=== PATIENT | female | born 1970 | race Caucasian/White ===

== ENCOUNTER 2017-01-14 07:18 | Inpatient (IN) | payer OTHER ==
[2017-01-14] MEDS ORDERED: DIAZEPAM 5 MG TAB PO STA (07:35)
[2017-01-14] MEDS ORDERED: HYDROcodone/APAP 5-325MG 1 EACH TAB PO STA (07:35)
[2017-01-14] MEDS ORDERED: KETOROLAC 60 MG/2 ML VIAL IM STA (07:35)
[2017-01-14 08:11] LABS: Appearance,Urine Cloudy (Clear); Bacteria,Urine Many /hpf; Bilirubin,Urine 1+ (Negative); Glucose,Urine (UA) Negative (Negative); Ketones,Urine 2+ (Negative); Leukocyte Esterase,Urine Moderate (Negative); Mucus,Urine Moderate /hpf; Nitrite,Urine Positive (Negative); Particle Count 17201; Protein,Urine 2+ (Negative); RBC,Urine 5 /hpf (0-5); Specific Gravity,Urine 1.025 (1.001-1.035); Squamous Epithelial Cell,Urine 5 /hpf (0-4); UA Billing (MACRO vs. MICRO) MICRO; Urobilinogen,Urine >12.0 mg/dL (<2.0); WBC,Urine 22 /hpf (0-5)
[2017-01-14] MEDS ORDERED: NITROFURANTOIN MONOHYD/M-CRYST 100 MG CAP PO STA (08:41)
--- NOTE | 2017-01-14 08:41 | US ---
EXAMINATION TYPE: US transvaginal DATE OF EXAM: 01/14/2017 COMPARISON: NONE CLINICAL HISTORY: Pain. Pt states bilateral pelvic pain especially during intercourse TECHNIQUE: Transvaginal (TV) Date of LMP: 01/13/2017 EXAM MEASUREMENTS: Uterus: 9.9 x 5.3 x 5.3 cm Endometrial Stripe: 0.9 cm Right Ovary: Normal ovarian tissue not visualized Left Ovary: Unable to visualize 1. Uterus: Anteverted Heterogeneous 2. Endometrium: wnl 3. Right Ovary: Hemorrhagic cyst vs. debris-filled fallopian tube= 6.5 x 4.5 x 3.9 cm 4. Left Ovary: Unable to visualize Spectral, color and waveform doppler imaging shows good arterial and venous flow within the right o vary; there is no evidence for ovarian torsion. 5. Bilateral Adnexa: Bilateral adnexa show enlarged, tubular structures filled with debris, probable fallopian tubes 6. Posterior cul-de-sac: wnl Clinical correlation is recommended with beta-hCG to evaluate for ectopic . IMPRESSION: 1. Large complex cyst bilateral ovaries. Correlate for hemorrhagic cyst. 2. Right fallopian tube appears dilated and debris-filled. Correlate for pyosalpinx.
--- NOTE | 2017-01-14 08:41 | ED ---
General Adult HPI - General Chief complaint: Abdominal Pain Stated complaint: lower back cramps into legs Time Seen by Provider: 01/14/17 07:26 Source: patient, RN notes reviewed, old records reviewed Mode of arrival: ambulatory Limitations: no limitations - History of Present Illness Initial comments: This is a 46-year-old female to the ER for evaluation of cramping, abdominal and upper thigh leg cramping. No dysuria no difficulties with bowel movement. No fevers. No adrenal travel history. Patient states she has history of ovarian cyst and this feels similar. She denies any recent change in medications. She states she did have a recent period which was normal. No vaginal discharge. No other issues of abdominal pain. She states her cramping feels like prior menses - Related Data Previous Rx's Medication Instructions Recorded Naproxen [Naprosyn] 500 mg PO Q12HR #30 tab 01/14/17 Nitrofurantoin Monohyd/M-Cryst 100 mg PO Q12HR #10 cap 01/14/17 [Macrobid] Allergies Allergy/AdvReac Type Severity Reaction Status Date / Time No Known Allergies Allergy Verified 01/14/17 07:23 Review of Systems ROS Statement: Those systems with pertinent positive or pertinent negative responses have been documented in the HPI. ROS Other: All systems not noted in ROS Statement are negative. Past Medical History Past Medical History: No Reported History History of Any Multi-Drug Resistant Organisms: None Reported Past Surgical History: No Surgical Hx Reported Past Psychological History: No Psychological Hx Reported Smoking Status: Former smoker Past Alcohol Use History: Rare Past Drug Use History: None Reported General Exam Limitations: no limitations General appearance: alert, in no apparent distress Head exam: Present: atraumatic, normocephalic, normal inspection Eye exam: Present: normal appearance, PERRL, EOMI. Absent: scleral icterus, conjunctival injection, periorbital swelling ENT exam: Present: normal exam, mucous membranes moist Neck exam: Present: normal inspection. Absent: tenderness, meningismus, lymphadenopathy Respiratory exam: Present: normal lung sounds bilaterally. Absent: respiratory distress, wheezes, rales, rhonchi, stridor Cardiovascular Exam: Present: regular rate, normal rhythm, normal heart sounds. Absent: systolic murmur, diastolic murmur, rubs, gallop, clicks GI/Abdominal exam: Present: soft, normal bowel sounds. Absent: distended, tenderness, guarding, rebound, rigid Extremities exam: Present: normal inspection, full ROM, normal capillary refill. Absent: tenderness, pedal edema, joint swelling, calf tenderness Back exam: Present: normal inspection Neurological exam: Present: alert, oriented X3, CN II-XII intact Psychiatric exam: Present: normal affect, normal mood Skin exam: Present: warm, dry, intact, normal color. Absent: rash Course Vital Signs 01/14/17 07:20 Temperature 99.1 F Pulse Rate 109 H Respiratory 20 Rate Blood Pressure 111/67 O2 Sat by Pulse 100 Oximetry - Reevaluation(s) Reevaluation #1: 01/14/17 08:40 The patient's symptoms are improved at this time Medical Decision Making - Medical Decision Making 46 3 times a day F reevaluation of bowel cramping leg cramping. Patient's symptoms are improved ultrasound pelvis negative. Urine is positive for urinary tract infection Patient can be discharged home - Lab Data Lab Results 01/14/17 01/14/17 Range/Units 07:57 07:57 Urine Color Light Brown Urine Appearance Cloudy H (Clear) Urine pH 6.0 (5.0-8.0) Ur Specific [place] 1.025 (1.001-1.035) Urine Protein 2+ H (Negative) Urine Glucose (UA) Negative (Negative) Urine Blood Moderate H (Negative) Urine Nitrite Positive H (Negative) Urine Bilirubin 1+ H (Negative) Urine Urobilinogen >12.0 (<2.0) mg/dL Ur Leukocyte Esterase Moderate H (Negative) Urine RBC 5 (0-5) /hpf Urine WBC 22 H (0-5) /hpf Ur Squamous Epith Cells 5 H (0-4) /hpf Urine Bacteria Many H (None) /hpf Urine Mucus Moderate H (None) /hpf Urine HCG, Qual Not Detected (Not Detectd) - Radiology Data Radiology results: report reviewed (Ultrasound negative for acute disease), image reviewed Disposition Clinical Impression: Ovarian cyst, Pelvic pain, UTI (urinary tract infection) Disposition: HOME SELF-CARE Condition: Good Instructions: Pelvic Pain (ED), Urinary Tract Infection in Women (ED) Prescriptions: Naproxen [Naprosyn] 500 mg PO Q12HR #30 tab Nitrofurantoin Monohyd/M-Cryst [Macrobid] 100 mg PO Q12HR #10 cap Referrals: Windsor,Temo G, MD [Primary Care Provider] - 1-2 days
[2017-01-14] MEDS ORDERED: DOXYCYCLINE 100 MG in SODIUM CHLORIDE 0.9% 100 ML IVPB ONE (08:58)
[2017-01-14] MEDS ORDERED: SODIUM CHLORIDE 0.9% 1,000 ML IV STA ×2 (08:58)
[2017-01-14] MEDS ORDERED: MORPHINE SULFATE 4 MG/ML SYRINGE IV STA (08:58)
[2017-01-14] MEDS ORDERED: SODIUM CHLORIDE 0.9% 500 ML IV STA (08:58)
[2017-01-14] MEDS ORDERED: AMPICILLIN-SULBACTAM 3 GM in SODIUM CHLORIDE 0.9% 100 ML IVPB STA (08:58)
--- NOTE | 2017-01-14 09:03 | ED ---
Medical Decision Making - Medical Decision Making [address] for evaluation of developing severe suprapubic about pain with abdominal tenderness. Patient does have what seems to be positive tubo-ovarian abscess on ultrasound, patient will be admitted for IV antibiotics, blood cultures and pain control. - Lab Data Lab Results 01/14/17 01/14/17 Range/Units 07:57 07:57 Urine Color Light Brown Urine Appearance Cloudy H (Clear) Urine pH 6.0 (5.0-8.0) Ur Specific [place] 1.025 (1.001-1.035) Urine Protein 2+ H (Negative) Urine Glucose (UA) Negative (Negative) Urine Ketones 2+ H (Negative) Urine Blood Moderate H (Negative) Urine Nitrite Positive H (Negative) Urine Bilirubin 1+ H (Negative) Urine Urobilinogen >12.0 (<2.0) mg/dL Ur Leukocyte Esterase Moderate H (Negative) Urine RBC 5 (0-5) /hpf Urine WBC 22 H (0-5) /hpf Ur Squamous Epith Cells 5 H (0-4) /hpf Urine Bacteria Many H (None) /hpf Urine Mucus Moderate H (None) /hpf Urine HCG, Qual Not Detected (Not Detectd) Disposition Clinical Impression: Ovarian cyst, Pelvic pain, UTI (urinary tract infection), TOA (tubo-ovarian abscess) Disposition: ADMITTED IP TO THIS HOSP Condition: Fair Instructions: Urinary Tract Infection in Women (ED), Pelvic Pain (ED) Prescriptions: Naproxen [Naprosyn] 500 mg PO Q12HR #30 tab Nitrofurantoin Monohyd/M-Cryst [Macrobid] 100 mg PO Q12HR #10 cap Referrals: Temo Landis MD [Primary Care Provider] - 1-2 days
[2017-01-14 10:12] LABS: Basophils # (A) 0.1 k/uL (0-0.2); Basophils % (A) 0 %; CH 31.3; CHCM 34.3; Eosinophils # (A) 0.1 k/uL (0-0.7); Eosinophils % (A) 0 %; HCT 39.9 % (34.0-46.0); HDW 2.18; HGB 13.3 gm/dL (11.4-16.0); Luc # (Auto) 0.25; Luc % (Auto) 1; Lymphocytes # (A) 0.8 k/uL (1.0-4.8); Lymphocytes % (A) 4 %; MCH 30.5 pg (25.0-35.0); MCHC 33.3 g/dL (31.0-37.0); MCV 91.6 fL (80.0-100.0); Mean Platelet Volume 7.4; Monocytes # (A) 0.6 k/uL (0-1.0); Monocytes % (A) 3 %; Neutrophils # (A) 18.1 k/uL (1.3-7.7); Neutrophils % (A) 92 %; RBC 4.35 m/uL (3.80-5.40); RDW 14.5 % (11.5-15.5); WBC 19.8 k/uL (3.8-10.6); WBC (Perox) 19.13
[2017-01-14 10:22] LABS: ALT 24 U/L (9-52); AST 18 U/L (14-36); Alkaline Phosphatase 124 U/L (38-126); Anion Gap 12 mmol/L; Blood Urea Nitrogen 16 mg/dL (7-17); Calcium 9.4 mg/dL (8.4-10.2); Carbon Dioxide 21 mmol/L (22-30); Chloride 100 mmol/L (98-107); Glucose 91 mg/dL (74-99); Non-African American GFR(MDRD) >60 (>60 ml/min/1.73 sqM); Sodium 133 mmol/L (137-145); Total Bilirubin 1.3 mg/dL (0.2-1.3); Total Protein 6.6 g/dL (6.3-8.2)
--- NOTE | 2017-01-14 16:28 | P.HPOB ---
History of Present Illness H&P Date: 01/14/17 Chief Complaint: Pelvic pain This is a 46-year-old 3 para 10-1 woman who presents with 4 days of worsening pelvic pain. This started with severe pain during and following intercourse which continued with each episode of intercourse throughout the weekend. She had irregular vaginal spotting. The lower abdominal pain became so severe that she presented to the emergency room. In the emergency room she was found on imaging to have bilateral complex tubular structures in the adnexa consistent with probable tubo-ovarian abscesses. She had an elevated white blood cell count of 19.8 thousand. She reports intermittent on pink vaginal spotting and has a history over the last year of very irregular periods. She has a new sexual partner within the last 2 months. She denies any other vaginal discharge. She denies fevers or chills. She has no appetite however denies nausea or vomiting. Obstetric history significant for 1 vaginal delivery, one miscarriage and one voluntary termination of . She is currently sexually active with irregular menses as described above. Review of Systems Constitutional: Reports anorexia, Reports fatigue, Denies chills, Denies fever Cardiovascular: Denies chest pain, Denies shortness of breath Respiratory: Denies congestion, Denies cough Gastrointestinal: Reports abdominal pain, Denies constipation, Denies diarrhea, Denies nausea, Denies vomiting Genitourinary: Reports abnormal vaginal bleeding, Reports dyspareunia, Denies dysuria, Denies flank pain Menstruation: Reports as per HPI Musculoskeletal: Reports low back pain Integumentary: Denies rash Hematologic/Lymphatic: Denies easy bleeding, Denies easy bruising Past Medical History Past Medical History: Seizure Disorder Additional Past Medical History / Comment(s): seizures 11 years ago History of Any Multi-Drug Resistant Organisms: None Reported Past Surgical History: No Surgical Hx Reported Past Anesthesia/Blood Transfusion Reactions: No Reported Reaction Past Psychological History: No Psychological Hx Reported Smoking Status: Former smoker Past Alcohol Use History: Rare Past Drug Use History: None Reported - Past Family History Father Family Medical History: Cancer Additional Family Medical History / Comment(s): lung ca Medications and Allergies Home Medications Medication Instructions Recorded Confirmed Type Acetaminophen-Codeine 300-30mg 1 tab PO BID PRN 01/14/17 01/14/17 History [Tylenol #3] Hydrocodone/Acetaminophen [Lortab 10 mg PO ONCE PRN 01/14/17 01/14/17 History 10 mg-300 mg/15 ml Elxr] Ibuprofen [Motrin] 800 mg PO DAILY PRN 01/14/17 01/14/17 History Naproxen [Naprosyn] 500 mg PO Q12HR #30 tab 01/14/17 Rx Nitrofurantoin Monohyd/M-Cryst 100 mg PO Q12HR #10 cap 01/14/17 Rx [Macrobid] Allergies Allergy/AdvReac Type Severity Reaction Status Date / Time No Known Allergies Allergy Verified 01/14/17 08:53 Exam - Vital Signs Vital signs: Vital Signs Temp Pulse Pulse Resp BP BP Pulse Ox 01/14/17 16:00 98.5 F 75 16 111/68 99 01/14/17 10:25 98.5 F 87 16 108/67 01/14/17 10:16 98.5 F 80 18 103/56 98 01/14/17 08:54 110 H 18 109/66 100 01/14/17 07:20 99.1 F 109 H 20 111/67 100 Intake and Output 01/14/17 01/14/17 01/14/17 06:59 14:59 22:59 Other: # Voids 1 Weight 54.431 kg Patient Weight 01/15/17 06:59 Weight 54.431 kg This is a pleasant female in no acute distress. HEENT exam is unremarkable for palpable lymphadenopathy. The lungs are clear to auscultation bilaterally and the heart is a regular rate and rhythm. The abdomen is tender in both lower quadrants with mild guarding and rebound. There is no flank pain. Pelvic examination is deferred per patient request secondary to severe discomfort. Cultures were taken in the emergency room. Extremities are symmetric, without erythema or swelling. Neurologically she is grossly intact. Results Result Diagrams: 01/14/17 09:57 01/14/17 09:57 Abnormal Lab Results - Last 24 Hours (Table) 01/14/17 01/14/17 01/14/17 Range/Units 07:57 09:57 09:57 WBC 19.8 H (3.8-10.6) k/uL Neutrophils # 18.1 H (1.3-7.7) k/uL Lymphocytes # 0.8 L (1.0-4.8) k/uL Sodium 133 L (137-145) mmol/L Carbon Dioxide 21 L (22-30) mmol/L Urine Appearance Cloudy H (Clear) Urine Protein 2+ H (Negative) Urine Ketones 2+ H (Negative) Urine Blood Moderate H (Negative) Urine Nitrite Positive H (Negative) Urine Bilirubin 1+ H (Negative) Ur Leukocyte Esterase Moderate H (Negative) Urine WBC 22 H (0-5) /hpf Ur Squamous Epith Cells 5 H (0-4) /hpf Urine Bacteria Many H (None) /hpf Urine Mucus Moderate H (None) /hpf Microbiology - Last 24 Hours (Table) 01/14/17 07:57 Urine Culture - Preliminary Urine,Voided US - abdomen: image reviewed Assessment and Plan (1) Pelvic pain Status: Acute (2) TOA (tubo-ovarian abscess) Status: Acute (3) UTI (urinary tract infection) Status: Acute Plan: This is a 46-year-old woman with a 4 day history of worsening pelvic pain and pain with intercourse who is found on evaluation to have elevated white blood cell count and bilateral adnexal structures consistent with tubo-ovarian abscesses. She is admitted for IV antibiotics and pain control. Blood and cervical cultures are pending.
[2017-01-14] MEDS: AMPICILLIN-SULBACTAM 3 GM in SODIUM CHLORIDE 0.9% 100 ML IVPB SCH (17:07)
[2017-01-14] MEDS: SODIUM CHLORIDE 0.9% 1,000 ML IV ONE (19:32)
[2017-01-14] MEDS: DOXYCYCLINE 100 MG in SODIUM CHLORIDE 0.9% 100 ML IVPB SCH (21:04)
[2017-01-14] MEDS ORDERED: KETOROLAC 30 MG/ML 1 ML VIAL IM PRN (23:29)
[2017-01-14] MEDS ORDERED: HYDROcodone/APAP 5-325MG 1 EACH TAB PO PRN (23:29)
[2017-01-15] MEDS: AMPICILLIN-SULBACTAM 3 GM in SODIUM CHLORIDE 0.9% 100 ML IVPB SCH ×3 (00:05→16:14)
[2017-01-15] MEDS: SODIUM CHLORIDE 0.9% 1,000 ML IV ONE ×2 (03:44→16:18)
--- NOTE | 2017-01-15 08:04 | P.PN ---
Subjective Principal diagnosis: Tubo-ovarian abscess Her pain is somewhat in improved and she was able to sleep some through the night. Still minimal appetite. She had a temperature of 100.4 overnight. She continues to have some bloody vaginal discharge. Cultures and labs are pending. Objective - Vital Signs Vital signs: Vital Signs Temp 99.1 F 01/15/17 03:50 Pulse 92 01/15/17 03:50 Resp 16 01/15/17 03:50 BP 103/63 01/15/17 03:50 Pulse Ox 99 01/15/17 00:00 Intake & Output 01/14/17 01/15/17 01/15/17 18:59 06:59 18:59 Intake Total 1400 Output Total 250 Balance 1150 Weight 54.431 kg Intake: IV 1100 Sodium Chloride 0.9% 1, 1100 000 ml @ 100 mls/hr IV . Q10H STA Rx#:[id number] Intake, IV Titration 200 Amount Ampicillin-Sulbactam 3 gm 100 In Sodium Chloride 0.9% 100 ml @ 100 mls/hr IVPB Q8HR AMY Rx#:[id number] Doxycycline 100 mg In 100 Sodium Chloride 0.9% 100 ml @ 66.67 mls/hr IVPB ONCE ONE Rx#:[id number] Oral 100 Output: Urine 250 Other: # Voids 1 1 - Constitutional General appearance: Present: no acute distress - Gastrointestinal General gastrointestinal: Present: soft, tenderness. Absent: distended - Labs CBC & Chem 7: 01/14/17 09:57 01/14/17 09:57 Labs: Abnormal Lab Results - Last 24 Hours (Table) 01/14/17 01/14/17 01/14/17 Range/Units 07:57 09:57 09:57 WBC 19.8 H (3.8-10.6) k/uL Neutrophils # 18.1 H (1.3-7.7) k/uL Lymphocytes # 0.8 L (1.0-4.8) k/uL Sodium 133 L (137-145) mmol/L Carbon Dioxide 21 L (22-30) mmol/L Urine Appearance Cloudy H (Clear) Urine Protein 2+ H (Negative) Urine Ketones 2+ H (Negative) Urine Blood Moderate H (Negative) Urine Nitrite Positive H (Negative) Urine Bilirubin 1+ H (Negative) Ur Leukocyte Esterase Moderate H (Negative) Urine WBC 22 H (0-5) /hpf Ur Squamous Epith Cells 5 H (0-4) /hpf Urine Bacteria Many H (None) /hpf Urine Mucus Moderate H (None) /hpf Microbiology - Last 24 Hours (Table) 01/14/17 07:57 Urine Culture - Preliminary Urine,Voided Assessment and Plan (1) Pelvic pain Status: Acute (2) TOA (tubo-ovarian abscess) Status: Acute (3) UTI (urinary tract infection) Status: Acute Plan: Hospital day #2 on IV Unasyn and doxycycline for tubo-ovarian abscess and urinary tract infection. Temperature of 100.4 overnight. CBC pending this morning. Plan is to continue IV antibiotics for 48-72 hours or until significant resolution of symptoms and normalization of WBCs.
[2017-01-15 08:25] LABS: Basophils % (A) 0 %; CH 30.7; CHCM 32.9; Eosinophils % (A) 0 %; HCT 37.2 % (34.0-46.0); HDW 2.21; Luc # (Auto) 0.21; Luc % (Auto) 2; Lymphocytes # (A) 0.7 k/uL (1.0-4.8); Lymphocytes % (A) 6 %; MCH 30.3 pg (25.0-35.0); MCHC 32.3 g/dL (31.0-37.0); Mean Platelet Volume 7.3; Monocytes # (A) 0.5 k/uL (0-1.0); Monocytes % (A) 5 %; Neutrophils # (A) 10.1 k/uL (1.3-7.7); Neutrophils % (A) 87 %; RBC 3.95 m/uL (3.80-5.40); RDW 14.3 % (11.5-15.5); WBC 11.6 k/uL (3.8-10.6); WBC (Perox) 12.46
[2017-01-15] MEDS: DOXYCYCLINE 100 MG in SODIUM CHLORIDE 0.9% 100 ML IVPB SCH ×2 (09:01→20:43)
[2017-01-15] MEDS: SODIUM CHLORIDE 0.9% 1,000 ML IV SCH (17:38)
[2017-01-15] MEDS: NICOTINE 14MG/24HR PATCH TRANSDERM SCH (20:43)
[2017-01-16] MEDS: AMPICILLIN-SULBACTAM 3 GM in SODIUM CHLORIDE 0.9% 100 ML IVPB SCH ×4 (00:04→23:58)
[2017-01-16] MEDS: SODIUM CHLORIDE 0.9% 1,000 ML IV SCH ×2 (04:02→17:40)
--- NOTE | 2017-01-16 08:20 | P.PN ---
Subjective Principal diagnosis: Tubo-ovarian abscess Pain significantly improved. Decreased vaginal spotting. Still with minimal appetite. Objective - Vital Signs Vital signs: Vital Signs Temp 98.1 F 01/16/17 06:53 Pulse 78 01/16/17 06:53 Resp 16 01/16/17 06:53 BP 108/55 01/16/17 06:53 Pulse Ox 99 01/15/17 19:50 Intake & Output 01/15/17 01/16/17 01/16/17 18:59 06:59 18:59 Intake Total 300 Output Total 550 500 Balance -250 -500 Intake: Oral 300 Output: Urine 550 500 Other: # Voids 380 - Constitutional General appearance: Present: average body habitus, no acute distress - Cardiovascular Rhythm: regular - Gastrointestinal General gastrointestinal: Present: soft, tenderness. Absent: distended Localized gastrointestinal: tender: suprabubic - Neurologic Neurologic: Absent: focal deficits - Psychiatric Psychiatric: Present: appropriate affect - Labs CBC & Chem 7: 01/15/17 08:08 01/14/17 09:57 Labs: Abnormal Lab Results - Last 24 Hours (Table) 01/15/17 Range/Units 08:08 WBC 11.6 H (3.8-10.6) k/uL Neutrophils # 10.1 H (1.3-7.7) k/uL Lymphocytes # 0.7 L (1.0-4.8) k/uL Microbiology - Last 24 Hours (Table) 01/14/17 07:57 Urine Culture - Preliminary Urine,Voided Gram Neg Bacilli 01/14/17 09:57 Blood Culture - Preliminary Blood No Growth after 24 hours Assessment and Plan (1) Pelvic pain Status: Acute (2) TOA (tubo-ovarian abscess) Narrative/Plan: Improved pain with IV Unasyn and doxycycline. WBCs decreased yesterday and labs are pending this morning. Plan is to repeat pelvic ultrasound today to assess interval improvement in abscess. Should she continued to improve throughout the day she may be discharged home later today or tomorrow on oral antibiotics. Status: Acute (3) UTI (urinary tract infection) Status: Acute
[2017-01-16] MEDS: DOXYCYCLINE 100 MG in SODIUM CHLORIDE 0.9% 100 ML IVPB SCH ×2 (10:20→21:21)
--- NOTE | 2017-01-16 13:05 | US ---
EXAMINATION TYPE: US transvaginal DATE OF EXAM: 01/16/2017 COMPARISON: 01/14/2017 CLINICAL HISTORY: tuboovarian abscess, assess progression. Patient states being on antibiotics TECHNIQUE: Transvaginal (TV) Date of LMP: 01/02/2017, EXAM MEASUREMENTS: Uterus: 9.1 x 7.1 x 5.2 cm Endometrial Stripe: 0.6 cm Right Ovary: 6.7 x 5.6 x 4.9 cm 1. Uterus: Anteverted wnl as visualized 2. Endometrium: wnl 3. Right Ovary: Probable tubo-ovarian abscess and debris filled fallopian tube with the abscess measu ring 6.7 x 5.4 x 4.2 cm and the dilated tube 4. Left Ovary: Not visualized Spectral, color and waveform doppler imaging shows good arterial and venous flow within the ovaries ; there is no evidence for ovarian torsion. 5. Bilateral Adnexa: Bilateral dilated possible fallopian tubes with internal debris. No free fluid visualized. 6. Posterior cul-de-sac: no free fluid Cervix- fluid seen in canal. Nabothian cysts. IMPRESSION: Similar appearing large right complex adnexal lesion with progression in size of largely dilated complex fluid filled right fallopian tube representing pyosalpinx or hematosalpinx concerning for tubo-ovarian abscess. Grossly dilated left fallopian tube also represents pyosalpinx or hematosa lpinx. Underlying PID is suspected.
[2017-01-16 15:35] LABS: Basophils % (A) 0 %; CHCM 33.3; Eosinophils % (A) 0 %; HCT 35.1 % (34.0-46.0); HDW 2.28; HGB 11.3 gm/dL (11.4-16.0); Luc # (Auto) 0.28; Luc % (Auto) 3; Lymphocytes # (A) 0.9 k/uL (1.0-4.8); Lymphocytes % (A) 9 %; MCH 30.1 pg (25.0-35.0); MCHC 32.2 g/dL (31.0-37.0); MCV 93.4 fL (80.0-100.0); Monocytes # (A) 0.8 k/uL (0-1.0); Monocytes % (A) 8 %; Neutrophils % (A) 79 %; RBC 3.76 m/uL (3.80-5.40); RDW 14.5 % (11.5-15.5); WBC (Perox) 11.07
[2017-01-16] MEDS ORDERED: ACETAMINOPHEN TAB 325 MG TAB PO PRN (16:05)
[2017-01-16] MEDS: NICOTINE 14MG/24HR PATCH TRANSDERM SCH (20:07)
[2017-01-17] MEDS: SODIUM CHLORIDE 0.9% 1,000 ML IV SCH ×3 (00:03→21:18)
[2017-01-17] MEDS: AMPICILLIN-SULBACTAM 3 GM in SODIUM CHLORIDE 0.9% 100 ML IVPB SCH ×3 (08:04→23:56)
[2017-01-17 09:24] LABS: Basophils % (A) 0 %; CH 30.5; CHCM 32.6; Eosinophils % (A) 0 %; HCT 35.7 % (34.0-46.0); HDW 2.29; HGB 11.6 gm/dL (11.4-16.0); Luc # (Auto) 0.37; Luc % (Auto) 4; Lymphocytes # (A) 0.7 k/uL (1.0-4.8); Lymphocytes % (A) 7 %; MCH 30.6 pg (25.0-35.0); MCHC 32.6 g/dL (31.0-37.0); MCV 93.9 fL (80.0-100.0); Mean Platelet Volume 6.9; Monocytes # (A) 0.7 k/uL (0-1.0); Monocytes % (A) 7 %; Neutrophils # (A) 8.3 k/uL (1.3-7.7); Neutrophils % (A) 82 %; RDW 14.1 % (11.5-15.5); WBC 10.1 k/uL (3.8-10.6); WBC (Perox) 10.66
--- NOTE | 2017-01-17 09:47 | P.PN ---
Subjective Principal diagnosis: Tubo-ovarian abscess, E. coli urinary tract infection Hospital day #4 currently on Unasyn and doxycycline for bilateral tubo-ovarian abscesses. Final urine culture is positive for E. coli. She reports feeling significantly better and is requesting discharge home. She reports she has minimal pain. She has no vaginal bleeding or discharge. Her appetite has returned and she is eating normally without any nausea or vomiting. She did have a temperature of 101.0 yesterday at 1800. Objective - Vital Signs Vital signs: Vital Signs Temp 99.4 F 01/17/17 07:33 Pulse 90 01/17/17 07:33 Resp 18 01/17/17 07:33 BP 94/46 01/17/17 07:33 Pulse Ox 98 01/16/17 23:54 Intake & Output 01/16/17 01/17/17 01/17/17 18:59 06:59 18:59 Intake Total 240 Output Total 300 Balance 240 -300 Intake: Oral 240 Output: Urine 300 Other: Voiding Method Toilet # Voids 1 2 - Constitutional General appearance: Present: average body habitus, cooperative, no acute distress - Respiratory Respiratory: bilateral: CTA - Cardiovascular Rhythm: regular - Gastrointestinal General gastrointestinal: Present: soft Localized gastrointestinal: tender: suprabubic - Integumentary Integumentary: Present: normal - Psychiatric Psychiatric: Present: appropriate affect - Labs CBC & Chem 7: 01/17/17 09:10 01/14/17 09:57 Labs: Abnormal Lab Results - Last 24 Hours (Table) 01/16/17 01/17/17 Range/Units 15:21 09:10 RBC 3.76 L (3.80-5.40) m/uL Hgb 11.3 L (11.4-16.0) gm/dL Neutrophils # 8.0 H 8.3 H (1.3-7.7) k/uL Lymphocytes # 0.9 L 0.7 L (1.0-4.8) k/uL Microbiology - Last 24 Hours (Table) 01/14/17 07:57 Urine Culture - Final Urine,Voided Escherichia coli 01/14/17 09:57 Blood Culture - Preliminary Blood No Growth after 48 hours - Imaging and Cardiology US - abdomen: report reviewed, other (Bilateral tubo-ovarian abscesses with out interval improvement.) Assessment and Plan (1) Pelvic pain Status: Acute (2) TOA (tubo-ovarian abscess) Status: Acute (3) UTI (urinary tract infection) Status: Acute Plan: Hospital day #4 on IV Unasyn and doxycycline. Clinical improvement with minimal pain at this point and improved appetite. Her white blood cell count has normalized. Unfortunately she continues to have intermittent fevers. I have recommended continuing IV antibiotics until at least 24 hours afebrile. I would then continue her on home Augmentin XR twice a day with close follow-up. Should she continued to spike fevers or have any worsening clinical condition condition and then consideration to image guided abscess drainage and or exploratory laparotomy.
[2017-01-17] MEDS: NICOTINE 14MG/24HR PATCH TRANSDERM SCH (20:45)
[2017-01-17] MEDS: DOXYCYCLINE 100 MG in SODIUM CHLORIDE 0.9% 100 ML IVPB SCH (20:45)
[2017-01-18] MEDS: DOXYCYCLINE 100 MG in SODIUM CHLORIDE 0.9% 100 ML IVPB SCH (00:25)
--- NOTE | 2017-01-18 06:26 | P.PN ---
Subjective Principal diagnosis: Tubo-ovarian abscess, E. coli urinary tract infection Hospital day #5, currently on Unasyn and Doxy for bilateral tubo-ovarian abscess. She states she is feeling well this morning and is anxious to go home highest temp overnight was 100.4.. He denies any pain at this point but is concerned about pain at home and is requesting perception for pain medication. She is tolerating regular diet without nausea or vomiting and a bleeding voiding without difficulty Objective - Vital Signs Vital signs: Vital Signs Temp 99.1 F 01/18/17 00:00 Pulse 97 01/18/17 00:00 Resp 16 01/18/17 00:00 BP 105/71 01/18/17 00:00 Pulse Ox 98 01/16/17 23:54 Intake & Output 01/17/17 01/17/17 01/18/17 06:59 18:59 06:59 Intake Total 700 Output Total 300 Balance -300 700 Intake: Intake, IV Titration 100 Amount Doxycycline 100 mg In 100 Sodium Chloride 0.9% 100 ml @ 66.67 mls/hr IVPB Q12HR AMY Rx#:[id number] Oral 600 Output: Urine 300 Other: # Voids 2 1 - Constitutional General appearance: Present: average body habitus, cooperative, no acute distress - Respiratory Respiratory: bilateral: CTA - Gastrointestinal General gastrointestinal: Present: normal bowel sounds, soft - Labs CBC & Chem 7: 01/17/17 09:10 01/14/17 09:57 Labs: Abnormal Lab Results - Last 24 Hours (Table) 01/17/17 Range/Units 09:10 Neutrophils # 8.3 H (1.3-7.7) k/uL Lymphocytes # 0.7 L (1.0-4.8) k/uL Microbiology - Last 24 Hours (Table) 01/14/17 09:57 Blood Culture - Preliminary Blood No Growth after 72 hours Assessment and Plan (1) TOA (tubo-ovarian abscess) Narrative/Plan: Plan for discharge discussed. Plan for antibiotics discussed with the patient, Rx augmentin 2000bid, will follow up with Dr. Dr. Hooper in the office per patient request. Status: Acute (2) UTI (urinary tract infection) Status: Acute
[2017-01-18 08:44] VITALS: BP 121/67; PULSE 94; RESP 18; TEMP 100.1
--- NOTE | 2017-02-15 11:46 | P.DS ---
Providers Date of admission: 01/14/17 08:58 Expected date of discharge: 01/18/17 Attending physician: Yuki Hooper Primary care physician: Temo Landis - Discharge Diagnosis(es) (1) TOA (tubo-ovarian abscess) Current Visit: Yes Status: Acute (2) UTI (urinary tract infection) Current Visit: Yes Status: Acute Hospital Course: This is a 46-year-old 3 para 1011 that presented to the emergency department on 01/14/2017. She states she had 4 days of worsening pelvic pain and pain was severe during and following intercourse. She noted irregular vaginal spotting in addition. In emergency department she was found to have bilateral tubo-ovarian abscesses. Her white count was 19.8. She denied nausea vomiting fevers or chills at that time. She was admitted to the hospital IV antibiotics were begun, Unasyn and doxycycline. In addition E. coli UTI was diagnosed. Her white count did decrease to 10 by hospital day #4 and she was feeling well, she is afebrile 24 hours on hospital day #5. She is anxious for discharge today Patient Condition at Discharge: Fair Plan - Discharge Summary New Discharge Prescriptions: New Naproxen [Naprosyn] 500 mg PO Q12HR #30 tab Nitrofurantoin Monohyd/M-Cryst [Macrobid] 100 mg PO Q12HR #10 cap No Action Acetaminophen-Codeine 300-30mg [Tylenol #3] 1 tab PO BID PRN PRN Reason: Pain Ibuprofen [Motrin] 800 mg PO DAILY PRN PRN Reason: Pain Hydrocodone/Acetaminophen [Lortab 10 mg-300 mg/15 ml Elxr] 10 mg PO ONCE PRN PRN Reason: Pain Discharge Medication List Acetaminophen-Codeine 300-30mg [Tylenol #3] 1 tab PO BID PRN 01/14/17 [History] Hydrocodone/Acetaminophen [Lortab 10 mg-300 mg/15 ml Elxr] 10 mg PO ONCE PRN [History] Ibuprofen [Motrin] 800 mg PO DAILY PRN 01/14/17 [History] Naproxen [Naprosyn] 500 mg PO Q12HR #30 tab 01/14/17 [Rx] Nitrofurantoin Monohyd/M-Cryst [Macrobid] 100 mg PO Q12HR #10 cap 01/14/17 [Rx] Follow up Appointment(s)/Referral(s): Temo Landis MD [Primary Care Provider] - 1-2 days Patient Instructions/Handouts: Urinary Tract Infection in Women (ED), Pelvic Pain (ED)
== END 2017-01-18 09:28 | disposition home or self-care (01) | DRG 758 ==
LOC: EC 07:18 → 4FBP 08:58
PROVIDERS: ADMIT Obstetrics & Gynecology; ATTEND Obstetrics & Gynecology
DX: N70.93 Salpingitis and oophoritis, unspecified (principal); N39.0 Urinary tract infection, site not specified; B96.20 Unspecified Escherichia coli [E. coli] as the cause of diseases classified elsewhere; N92.6 Irregular menstruation, unspecified; N89.8 Other specified noninflammatory disorders of vagina; R53.83 Other fatigue; N94.10 Unspecified dyspareunia; D72.829 Elevated white blood cell count, unspecified; R50.9 Fever, unspecified; Z79.891 Long term (current) use of opiate analgesic; Z79.899 Other long term (current) drug therapy; Z87.891 Personal history of nicotine dependence; Z80.1 Family history of malignant neoplasm of trachea, bronchus and lung; Z79.1 Long term (current) use of non-steroidal anti-inflammatories (NSAID); Z86.69 Personal history of other diseases of the nervous system and sense organs
CPT/HCPCS: 76830; 80053; 81001; 81025; 85025; 87040; 87077; 87086; 87186; 87491; 87591; 93976; 96372; 99285

== ENCOUNTER → 2017-08-15 | Outpatient (CLI) | payer OTHER ==
--- NOTE | 2017-08-15 16:19 | CT ---
EXAMINATION TYPE: CT brain wo/w con DATE OF EXAM: 08/15/2017 COMPARISON: NONE HISTORY: c/o seizure, diiziness CT DLP: 2161mGycm CONTRAST: CT scan of the head is performed with IV Contrast, patient injected with 100 mL of Isovue 300. Unenhanced followed by contrast enhanced CT of the brain is submitted for evaluation. The ventricles are midline. There is no evidence for intracranial hemorrhage or extra-axial collection. No mass e ffects are identified. Visualized bony calvarium is intact. Contrast is administered and no enhanci ng lesions are detected. No pathologic enhancement is identified. If symptoms persist consider MRI. IMPRESSION: No significant abnormality appreciated.
== END | disposition home or self-care (01) ==
LOC: RADCTMAIN 15:29
PROVIDERS: ATTEND Family Medicine
DX: R56.9 Unspecified convulsions (principal)
CPT/HCPCS: 70470; Q9967